=== PATIENT | female | born 1975 | race Caucasian/White ===

== ENCOUNTER 2021-12-16 11:37 | Emergency (ER) | payer OTHER ==
[2021-12-16] MEDS ORDERED: NORCO 5-325 TA1 EACH PO (15:58)
[2021-12-16] MEDS ORDERED: CEPHALEXIN500 MG PO (15:58)
== END 2021-12-16 17:13 | disposition home or self-care (01) ==
LOC: FER 11:37
DX: S62.617A Displaced fracture of proximal phalanx of left little finger, initial encounter for closed fracture (principal); M25.562 Pain in left knee; I10 Essential (primary) hypertension; Z88.1 Allergy status to other antibiotic agents; W01.0XXA Fall on same level from slipping, tripping and stumbling without subsequent striking against object, initial encounter; Y92.89 Other specified places as the place of occurrence of the external cause; Y99.0 Civilian activity done for income or pay
CPT/HCPCS: 73130; 73560; 96374; 96375; J1170; J2405